=== PATIENT | male | born 1950 | race Caucasian/White ===

== ENCOUNTER 2018-11-27 08:57 | Emergency (ER) | payer MEDICARE ==
[2018-11-27] MEDS ORDERED: Ketorolac 60 MG/2 ML SDV IM ONE (10:19)
--- NOTE | 2018-11-27 10:23 | EDM.PDOC ---
ED HPI GENERAL MEDICAL PROBLEM - General Chief Complaint: Lower Extremity Injury/Pain Stated Complaint: PAIN IN HIP AREA AND GOES INTO LEFT KNEE Time Seen by Provider: 11/27/18 09:55 Source of Information: Reports: Patient History Limitations: Reports: No Limitations - History of Present Illness INITIAL COMMENTS - FREE TEXT/NARRATIVE: 68-year-old male who injured his lower back and side 2 months ago lifting his dog, since then the pain had resolved but he has had recurring low back pain especially on the left side. Over the past several days he's had an acute exacerbation which is intolerable, he can barely get out of bed or sit down. The pain is localized over the left SI joint area and radiates down the back of his leg to his knee, no further. He's much better when standing and walking, he has no weakness of the leg or paresthesias. It does "burn". No incontinence, no rash. Onset: Unknown/Unsure Location: Reports: Lower Extremity, Left Improves with: Reports: Other (Standing upright) Worsens with: Reports: Other (Sitting or trying to get up from a lying position) Associated Symptoms: Reports: No Other Symptoms Left Hip Pain Score (Numeric/FACES): 8 - Related Data Allergies Allergy/AdvReac Type Severity Reaction Status Date / Time No Known Allergies Allergy Verified 11/27/18 09:49 Home Meds: Home Meds NK [No Known Home Meds] 11/27/18 [History] Past Medical History Other Cardiovascular History: mitral valve prolaps Genitourinary History: Reports: Renal Calculus - Infectious Disease History Infectious Disease History: Reports: Chicken Pox, Measles, Mumps Social & Family History - Tobacco Use Smoking Status *Q: Never Smoker - Caffeine Use Caffeine Use: Reports: Tea - Recreational Drug Use Recreational Drug Use: No Review of Systems - Review of Systems Review Of Systems: See Below Constitutional: Denies: Fever Respiratory: Reports: No Symptoms Cardiovascular: Reports: No Symptoms GI/Abdominal: Reports: No Symptoms Skin: Reports: No Symptoms Neurological: Reports: Other (Burning sensation down the posterior left leg, no paresthesia) ED EXAM, GENERAL - Physical Exam Exam: See Below Exam Limited By: No Limitations General Appearance: Alert, No Apparent Distress, Other (Looks uncomfortable but not distressed) Respiratory/Chest: No Respiratory Distress Extremities: Other (Patient has no significant palpation tenderness to the SI joint or buttock. He has marked increased pain when flexing the hip or rotating the left leg. No neurologic deficits or asymmetry.) Course - Vital Signs Last Recorded V/S: Last Vital Signs Temp 94.4 F L 11/27/18 09:50 Pulse 83 11/27/18 09:50 Resp 18 11/27/18 09:50 BP 155/103 H 11/27/18 09:50 Pulse Ox 99 11/27/18 09:50 - Orders/Labs/Meds Meds: Medications Discontinued Medications Generic Name Dose Route Start Last Admin Trade Name Shine PRN Reason Stop Dose Admin Ketorolac Tromethamine 60 mg 11/27/18 10:19 11/27/18 10:26 Toradol IM 11/27/18 10:20 60 mg ONETIME ONE Administration - Re-Assessments/Exams Free Text/Narrative Re-Assessment/Exam: 11/27/18 10:23 Patient was given 60 mg of IM Toradol. 11/27/18 10:25 Patient does have hydrocodone at home but doesn't like taking it because it makes him sleepy. I'm going to put him on 60 mg of prednisone daily for 5 days, encouraged him to use the hydrocodone and try to stay active. If not improving satisfactorily within the next 3-4 days he can return for recheck, he likely will need an MRI or possibly physical therapy consultation or orthopedic referral if not improving. Departure - Departure Time of Disposition: 10:56 Disposition: Home, Self-Care 01 Clinical Impression: Sacroiliac joint pain Sciatica Qualifiers: Laterality: left Qualified Code(s): M54.32 - Sciatica, left side - Discharge Information Instructions: Sciatica, [id number] Referrals: PCP,None [Primary Care Provider] - Forms: ED Department Discharge Care Plan Goals: Take 6 pills of prednisone with your first meal for 5 consecutive days. Continue with ibuprofen and Tylenol, or add hydrocodone for significant pain. Recheck in 3-4 days if not improving satisfactorily, try to stay active. Return anytime if worsening such as incontinence, leg weakness or inability to stand or walk.
== END 2018-11-27 10:56 | disposition home or self-care (01) ==
LOC: JP.ED 08:57
DX: M53.3 Sacrococcygeal disorders, not elsewhere classified (principal); M54.42 Lumbago with sciatica, left side
CPT/HCPCS: 96372; 99283; J1885